=== PATIENT | female | born 1970 | race Caucasian/White ===

== ENCOUNTER → 2023-06-15 08:21 | Outpatient (CLI) | payer OTHER, SELFPAY ==
[2023-06-15 09:39] LABS: Add Manual Diff / Slide Review NO; Basophils Absolute Auto 0 /uL (0-100); Basophils Percent Auto 0.9 % (0-2); Eosinophils Absolute Auto 100 /uL (0-450); Eosinophils Percent Auto 1.1 % (2-4); Hematocrit 40.4 % (36-46); Hemoglobin 13.8 g/dL (12.0-16.0); Lymphocytes Absolute Auto 1900 /uL (1100-4500); Lymphocytes Percent Auto 36.1 % (25-40); Mean Corpuscular HGB Conc 34.2 % (30-36); Mean Corpuscular Hemoglobin 32.5 PG (26-34); Mean Corpuscular Volume 95.2 fL (80-100); Monocytes Absolute Auto 500 /uL (0-900); Monocytes Percent Auto 8.8 % (3-14); Neutrophils Absolute Auto 2800 /uL (1500-7000); Neutrophils Percent Auto 53.1 % (50-75); Platelet Count 344 X10^3/uL (150-400); Red Blood Cell Count 4.24 X10^6/uL (4.0-5.2); Red Cell Distribution Width 15.6 % (11.6-14.8); White Blood Cell Count 5.3 X10^3/uL (4.5-11.0)
[2023-06-16 03:36] LABS: Homocysteine 7.2 umol/L (0.0-14.5)
[2023-06-20 18:46] LABS: Activated Prot C Resistance 2.8 ratio (2.2-3.5); Antithrombin Activity 120 % (75-135); Antithrombin Antigen 103 % (72-124); Protein S-Functional 67 % (63-140)
[2023-06-21 11:01] LABS: Alder IgE <0.10 kU/L (Class 0); Alternaria alternata IgE <0.10 kU/L (Class 0); Aspergillus fumigatus IgE <0.10 kU/L (Class 0); Box Elder IgE <0.10 kU/L (Class 0); Cat Dander IgE <0.10 kU/L (Class 0); Cladosporium herbarum IgE <0.10 kU/L (Class 0); Cockroach IgE <0.10 kU/L (Class 0); Cottonwood IgE <0.10 kU/L (Class 0); D farinae IgE <0.10 kU/L (Class 0); D pteronyssinus IgE <0.10 kU/L (Class 0); Dog Dander IgE <0.10 kU/L (Class 0); Elm Tree IgE <0.10 kU/L (Class 0); IgE Mugwort <0.10 kU/L (Class 0); IgE Thistle,Russian <0.10 kU/L (Class 0); Immunoglobulin E 7 IU/mL (6-495); Mountain Cedar IgE <0.10 kU/L (Class 0); Mouse Urine Proteins IgE <0.10 kU/L (Class 0); Oak Tree IgE <0.10 kU/L (Class 0); Penicillium chrysogen IgE <0.10 kU/L (Class 0); Pigweed, Common IgE <0.10 kU/L (Class 0); Sheep Sorrel IgE <0.10 kU/L (Class 0); Silver Birch IgE <0.10 kU/L (Class 0); Timothy Grass IgE <0.10 kU/L (Class 0)
== END ==
PROVIDERS: Referring Provider Internal Medicine Critical Care Medicine; Visit Provider Internal Medicine Critical Care Medicine
DX: J45.909 Unspecified asthma, uncomplicated (principal); I26.99 Other pulmonary embolism without acute cor pulmonale
CPT/HCPCS: 36415; 81241; 82785; 83090; 85025; 85300; 85301; 85306; 86003

== ENCOUNTER → 2023-06-22 08:12 | Outpatient (CLI) | payer OTHER, SELFPAY | PROVIDERS: Referring Provider Internal Medicine Critical Care Medicine; Visit Provider Internal Medicine Critical Care Medicine | DX: J45.909 Unspecified asthma, uncomplicated (principal); Z87.891 Personal history of nicotine dependence; Z86.16 Personal history of COVID-19 | CPT/HCPCS: 94060; 94726; 94729 ==

== ENCOUNTER → 2023-07-05 06:46 | Outpatient (CLI) | payer OTHER, SELFPAY ==
--- NOTE | 2023-07-05 06:49 | DI.ECHO.S_ITS ---
[facility] +---------+ : : [address] : [place] : : : : [id number] : : : : Phone: [phone]+ Echocardiogram Report + + :Name: DELFINO MCGHEE Study Date: 07/05/2023 Height: 66 in : :[facility] ReadingLocation: Weight: 191 lb : : Gender: Female BSA: 2.0 m2 : :: 1970 Age: 52 yrs BP: 107/75 mmHg: :Reason For Study: PULMONARY EMBOLISM : :Ordering Physician: SHIRLEY, : :JOSIAS Performed By: Ana Polo : :Referring: JOSIAS WATSON : + + Interpretation Summary 1) Normal left ventricular size and thickness with mildly reduced systolic function (EF 45-50%). 2) Severely enlarged right ventricle with moderately reduced function. 3) No significant valvular abnormalities. 4) The right ventricular systolic pressure is estimated to be at least 72 mmHg based on an estimated right atrial pressure of 15 mm Hg. 5) No prior Echo available for comparison. Procedure: A two-dimensional transthoracic echocardiogram with color flow and Doppler was performed. The study quality was technically adequate. There is no prior echocardiogram noted for this patient. A contrast injection of Definity was performed to improve assessment for apical thrombus. The patient was in sinus rhythm with heart rates between 46-86 bpm during the exam. Left Ventricle: The left ventricle is normal in size. There is normal left ventricular wall thickness. The ejection fraction is estimated to be 45-50%. The interventricular septum is flattened, consistent with a right ventricular pressure/volume condition. Right Ventricle: The right ventricle is severely dilated. A moderator band is seen in the right ventricle. Right ventricular systolic function is moderately reduced. Atria: The left atrial size is normal. The right atrium is moderately dilated. There is no Doppler evidence for an interatrial shunt. Mitral Valve: The mitral valve is normal in structure and function. There is trace mitral regurgitation. Aortic Valve: The aortic valve is trileaflet. The aortic valve opens well. There is no aortic valve stenosis. No aortic regurgitation is present. Tricuspid Valve: The tricuspid valve is normal in structure and function. There is mild tricuspid regurgitation. The right ventricular systolic pressure is estimated to be at least 72 mmHg based on an estimated right atrial pressure of 15 mm Hg. Pulmonic Valve: The pulmonic valve leaflets are thin and pliable; valve motion is normal. There is mild pulmonic regurgitation. Great Vessels: The aortic root is normal size. The dimensions of the ascending aorta are normal. The IVC is dilated (diameter is greater than 2.1 cm) and it collapses less than 50% with a sniff. This suggests a high right atrial pressure of 15 mm Hg. Pericardium/ Pleura Trace, physiological pericardial effusion present. There is no pleural effusion. MMode/2D Measurements & Calculations LVIDd: 3.9 cm LVOT diam: 2.1 cm LVIDs: 2.8 cm Ao root diam: 3.0 cm FS: 27.4 % asc Aorta Diam: 2.5 cm EPSS: 0.69 cm Ao Arch Diam (Prox Trans): 2.1 cm IVSd: 0.96 cm LVPWd: 0.91 cm LV milan. diameter/BSA (cm/m^2): 2.0 LV sys. diameter/BSA (cm/m^2): 1.4 LA A2 area: 14.7 cm2 RA long axis: 5.5 cm LA A4 area: 11.2 cm2 RA area: 22.0 cm2 LA length (vol): 4.3 cm RA vol: 75.4 ml LA vol: 32.4 ml RA : 38.4 ml/m2 LA vol index: 16.5 ml/m2 IVC diam: 2.3 cm RVD1 (basal): 4.6 cm RVD2 (mid): 4.5 cm TAPSE: 1.4 cm Doppler Measurements & Calculations Ao V2 max: 65.1 cm/sec LVOT Max Gareth: 60.3 cm/sec Ao V2 mean: 50.9 cm/sec LV V1 max P.5 mmHg Ao max P.7 mmHg LV V1 VTI: 9.4 cm Ao mean P.1 mmHg MICHELLE(I,D): 3.0 cm2 Ao V2 VTI: 11.0 cm MICHELLE(V,D): 3.3 cm2 sev ratio: 0.86 MICHELLE indexed to BSA (cm^2/m^2): 1.5 MV E max gareth: 34.8 cm/sec TR max gareth: 375.8 cm/sec MV A max gareth: 56.6 cm/sec TR max P.5 mmHg MV E/A: 0.62 PA V2 max: 56.9 cm/sec Med Peak E' Gareth: 3.6 cm/sec PA V2 mean: 36.5 cm/sec E/E' med: 9.8 PA mean P.57 mmHg Lat Peak E' Gareth: 7.2 cm/sec PA pr(Accel): 55.0 mmHg E/E' lat: 4.8 E/e' average: 7.3 MV dec time: 0.34 sec SV(LVOT): 33.2 ml Reading Physician:11:07 AM
== END ==
LOC: ECHO 06:49
PROVIDERS: Referring Provider Internal Medicine Critical Care Medicine; Visit Provider Internal Medicine Critical Care Medicine
DX: I26.99 Other pulmonary embolism without acute cor pulmonale (principal); I07.1 Rheumatic tricuspid insufficiency
CPT/HCPCS: 81241; C8929; Q9957

== ENCOUNTER → 2023-07-13 10:13 | Outpatient (CLI) | payer OTHER, SELFPAY ==
--- NOTE | 2023-07-13 10:13 | DI.CT.S_ITS ---
PROCEDURE: CT ANGIO CHEST PE PROTOCOL INDICATIONS: PE history and new PAH TECHNIQUE: After the administration of intravenous contrast, 2 mm thick sections acquired from the pulmonary apices to the posterior costophrenic angles. 3-dimensional maximum intensity projection (MIP) coronal and sagittal reformats were then acquired through the thorax. For radiation dose reduction, the following was used: automated exposure control, adjustment of mA and/or kV according to patient size. COMPARISON: [facility], RG, CT ANGIO CHEST W / WO CONTRAST, 04/09/2023, 10:21. FINDINGS: Image quality: Diagnostic Lungs and pleura: [id number] mosaic attenuation. There are peripheral foci both ground-glass and nodular consolidative opacities. These are increased. No drainable pleural effusion. Mediastinum, heart, and esophagus: No acute appearing pulmonary embolism, however, there are linear in eccentric filling defects seen, particularly in the right segmental and subsegmental pulmonary arteries. Enlarged RV to LV ratio . Dilated pulmonary artery at 3.4 cm. Small pericardial effusion no pathologic lymph nodes by size criteria. Chest wall and thyroid: Unremarkable. No actionable thyroid nodule identified. Upper abdomen: Cholelithiasis. There is reflux of contrast into the hepatic IVC. No gross abnormality elsewhere on these limited arterial phase images. Bones: No acute or suspicious osseous finding. A IMPRESSION: No acute/new pulmonary edema with some, however, there are filling defects that are eccentric and more linear, compatible with subacute to chronic emboli, particularly in the right segmental and subsegmental branches. Enlarged RV to LV ratio, reflux of contrast into the hepatic IVC, and dilated main pulmonary artery, representing elevated right heart and pulmonary pressures. Mosaic attenuation of the lungs, possibly due to chronic pulmonary emboli versus chronic small airways disease Peripheral nodular and ground-glass pulmonary opacities likely infectious or inflammatory, versus superimposed ARDS. Consider future imaging surveillance to assess for resolution. Small pericardial effusion Dictated by: Barber Jj M.D. on 07/13/2023 at 10:43 Approved by: Barber Jj M.D. on 07/13/2023 at 10:49
== END ==
PROVIDERS: Referring Provider Internal Medicine Critical Care Medicine; Visit Provider Internal Medicine Critical Care Medicine
DX: I31.39 Other pericardial effusion (noninflammatory) (principal); I26.99 Other pulmonary embolism without acute cor pulmonale; I27.24 Chronic thromboembolic pulmonary hypertension; K80.20 Calculus of gallbladder without cholecystitis without obstruction
CPT/HCPCS: 71275; Q9967